=== PATIENT | male | born 1995 | race Hispanic/Latino ===

== ENCOUNTER 2025-08-20 14:30 | Emergency (ER) | payer OTHER, SELFPAY ==
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
[2025-08-20 14:31] VITALS: BP 142/87; PULSE 67; RESP 16; TEMP 36.9; O2SAT 98
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
== END 2025-08-20 18:46 | disposition home or self-care (01) ==
PROVIDERS: Emergency Provider Physician Assistant
DX: S16.1XXA Strain of muscle, fascia and tendon at neck level, initial encounter (principal); S46.212A Strain of muscle, fascia and tendon of other parts of biceps, left arm, initial encounter; V49.50XA Passenger injured in collision with unspecified motor vehicles in traffic accident, initial encounter
CPT/HCPCS: 70450; 71046; 71100; 72125; 73060; 99284; A4565